=== PATIENT | female | born 1955 | race Caucasian/White ===

== ENCOUNTER 2019-08-01 13:24 | Inpatient (IN) | payer OTHER, BC ==
[~2019-08-01] VITALS: Ht 152.4 cm; Wt 71.2 kg
[2019-08-01 13:56] VITALS: BP 148/87
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
[2019-08-01] MEDS ORDERED: LOPERAMIDE2 MG (15:05)
[2019-08-01] MEDS ORDERED: LOPERAMIDE2 MG PO (15:06)
[2019-08-01] MEDS ORDERED: ALPRAZOLAM 0.50.5 MG PO (15:10)
[2019-08-01] MEDS ORDERED: AZITHROMYCIN500 MG PO (15:17)
[2019-08-01] MEDS ORDERED: NORCO 5-325 TA1 EAC1 PO (15:18)
[2019-08-01] MEDS ORDERED: CEFIXIME400 MG PO (15:18)
[2019-08-01] MEDS ORDERED: ATIVAN0.5 M1 PO (16:21)
[2019-08-01] MEDS ORDERED: DEPAKOTE500 MG PO (16:22)
[2019-08-01] MEDS ORDERED: TRAMADOL 50 MG50 MG PO (16:22)
[2019-08-01] MEDS ORDERED: ACYCLOVIR 400400 MG PO (16:22)
[2019-08-01] MEDS ORDERED: TRAZODONE 150150 M1 PO (16:23)
[2019-08-01] MEDS ORDERED: PRISTIQ50 M1 PO (16:23)
[2019-08-01] MEDS ORDERED: MIRAPEX1 MG PO (16:23)
[2019-08-01 19:24] VITALS: BP 126/73
--- NOTE | 2019-08-02 03:57 | NUR ---
Assumed car eof pt @ 1900. Pt slightly anxious and argumentative at beginning of shift. Pt took medications whole without difficulty. Pt argued with staff when asked to give up her beaded necklace. Pt states, "I'm not suicidal now". Pt denies SI/HI. Pt isolated in room most of shift. Pt was given PRN Tramadol for pain, Ativan for anxiety, and Zofran for nausea. VSWNL. Health assessment with no abnormalities at present time. Currently resting in bed with eyes closed. Will continue to monitor per protocol.
[2019-08-02 08:00] VITALS: BP 127/74
--- NOTE | 2019-08-02 08:00 | NUR ---
PT CAME OUT TO DINING ROOM FOR BREAKFAST, PT HAS RING TO SIT ON FOR PAIN TO PELVIS. PT STATED SHE HAS PAIN OF 8 ON 1-10 SCALE TO HEAD, BACK AND PELVIC AREA. PT UNABLE TO SIT TO EAT. PT DID DRINK SOME OJ.
--- NOTE | 2019-08-02 09:09 | NUR ---
ADM TRAMADOL 50MG PO FOR PAIN OF 8 ON 1-10 SCALE TO HEAD, BACK, AND PELVIC AREA.
--- NOTE | 2019-08-02 10:09 | NUR ---
ADM LORAZEPAM 0.5MG FOR ANXIETY. PT STATED TRAMADOL DIDN'T HELP PAIN.
--- NOTE | 2019-08-02 12:08 | NUR ---
CALLING DR. URIBE AT THIS TIME FOR ORDERS ON HYDROCODONE, PT WOULD LIKE TO HAVE SOMETHING FOR DIARRHEA ALSO.
[2019-08-02 13:16] VITALS: BP 127/74
--- NOTE | 2019-08-02 14:06 | NUR ---
ADM HYDROCODON 5MG PO FOR PAIN TO BACK, HEAD, AND PELVIC OF 8 ON 1-10 SCALE. PT GETTING ANXIOUS AND UPSET ABOUT HAVING TO WAIT FOR PAIN MED.
--- NOTE | 2019-08-02 15:47 | NUR ---
Sw met with pt and completed the intake assessment and TP. This included finding her insurance cards from the safe in security and providing this to administration. Sw spoke with Dr Cordova at the end of the day and she stated that this pt can d/c home tomorrow per pt request. pt has appts with Kaylee simpson [facility] [phone] on 08/07 at 2pm. This is a weekly visit. Dr Bobby on 09/02 . This pt has an AA sponsor and is active in her taoism.
[2019-08-02 16:33] LABS: HEMATOCRIT 43.7 % (37.0-47.0); HEMOGLOBIN 14.3 gm/dL (12.0-15.0); MCHC 32.8 g/dL (28.0-37.0); MCV 100.6 fL (80.0-100.0); RBC 4.34 mil/uL (4.20-5.00); RDW 13.4 % (10.5-14.5); WBC 9.1 thou/uL (4.0-11.0)
[2019-08-02 16:50] LABS: ALBUMIN 3.5 g/dL (3.4-5.0); CALCIUM 9.1 mg/dL (8.5-10.1); CREATININE 0.7 mg/dL (0.6-1.0); POTASSIUM 4.6 mmol/L (3.5-5.1); TOTAL BILIRUBIN 0.3 mg/dL (<0.1-1.0); TOTAL PROTEIN 7.8 g/dL (6.4-8.2)
[2019-08-02 17:35] LABS: URINE BILIRUBIN NEGATIVE (Negative); URINE BLOOD NEGATIVE (Negative); URINE CLARITY CLEAR; URINE COLOR YELLOW; URINE GLUCOSE-RANDOM* NEGATIVE (Negative); URINE KETONES NEGATIVE (Negative); URINE LEUKOCYTES 2+ (Negative); URINE NITRITE NEGATIVE (Negative); URINE PROTEIN (DIPSTICK) NEGATIVE (Negative); URINE SPECIFIC GRAVITY >= 1.030 (1.005-1.035); URINE UROBILINOGEN 0.2 E.U./dl (0.2-1.0)
[2019-08-02 17:45] LABS: CASTS None Seen /LPF (None Seen); CRYSTALS None Seen /LPF (None Seen); SQUAMOUS >10 Many /LPF (0-3); URINE RBC None Seen /HPF (0-2); URINE WBC >25 Many /HPF (0-5)
[2019-08-02 19:30] VITALS: BP 137/82
--- NOTE | 2019-08-02 19:33 | NUR ---
ADM NORCO 5MG PO FOR PAIN TO HEAD, BACK, AND PELVIC OF 8 ON 1-10 SCALE.
--- NOTE | 2019-08-03 03:52 | NUR ---
Assumed care of pt @ 1900. Pt calm et cooperative this shift with pleasant misdemeanor. Took medications whole without difficulty. Ambulates halls ad krystal with steady gait et use of walker. Isolated in room most of early part of shift. VSWNL. Health assessment with no abnormalities noted at present time. Pt was given PRNs during shift of Hydrocodone/Acetaminophen for pain, Zofran for nausea, et Ativan for anxiety. Currently resting in bed with eyes closed. Will continue to monitor per protocol.
[2019-08-03 08:10] VITALS: BP 92/60
--- NOTE | 2019-08-03 08:17 | NUR ---
PT OUT IN DINING ROOM THIS AM. PT HAS DONUT PILLOW FOR BOTTOM. PT STATED SHE DID WANT SOME PAIN MEDICATION. PT STATED PAIN IS +10 TO BACK. PT TOOK MEDS WHOLE FOR THIS [employer].
--- NOTE | 2019-08-03 08:26 | NUR ---
ADM NORCO 5MG PO FOR PAIN TO BACK AND HEAD OF 10 ON 1-10 SCALE.
[2019-08-03 08:42] VITALS: BP 127/74
[2019-08-03 10:50] VITALS: BP 127/74
--- NOTE | 2019-08-03 10:51 | NUR ---
Sw spoke with pt's friend Clari [phone] and she stated that she would be staying with the pt for this next week and will be at the home when pt gets ther this afternoon. Pt's car is at [facility]. Sw will provide a taxi voucher for the transfer to her car. MARLEN reported this to nursing, Dr Cordova and pt.
--- NOTE | 2019-08-03 11:09 | NUR ---
Sw met with pt and reported d/c plans, pt is satisfied with this.
[2019-08-03] MEDS ORDERED: ADVAIR 250-501 EACH INH (12:27)
[2019-08-03] MEDS ORDERED: FAMCICLOVIR250 MG PO (12:28)
[2019-08-03] MEDS ORDERED: MELOXICAM15 MG PO (12:28)
[2019-08-03] MEDS ORDERED: PRAZOSIN HCL1 MG PO (12:28)
[2019-08-03] MEDS ORDERED: VENTOLIN HFA INH8 GM INH (12:29)
[2019-08-03] MEDS ORDERED: VENTOLIN HFA 1818 GM INH (12:30)
[2019-08-03] MEDS ORDERED: FLORANEX GRANU1 EACH PO (12:34)
[2019-08-03] MEDS ORDERED: CYMBALTA20 MG PO (12:34)
[2019-08-03] MEDS ORDERED: OTHER (12:34)
--- NOTE | 2019-08-03 12:54 | NUR ---
ADM HYDROCODONE 5MG PO AND ATIVAN PO FOR ANXIETY AND PAIN OF 6 ON 1-10 SCALE. PT STATED PAIN IS BETTER, PT SEEMS TO BE IN GOOD SPIRITS. PT GOING TO BE DISCHARGED TODAY.
--- NOTE | 2019-08-03 13:40 | NUR ---
REVIEWED DISCHARGE INFORMATION WITH PATIENT. PT BELONGINGS GIVEN TO PATIENT. PT DIDN'T RECIEVE NARCOTIC DUE MED NOT BEING AT PHARMACY. PT UPSET AND STATED SHE DIDN'T HAVE PAIN MED OR ATIVAN AT HOME, THIS MANAGER PROPERTY STATED TO FOLLOW UP WITH PRIMARY DR. PT STATED OF FORGET ABOUT IT. PT LEFT VIA CAB TO CAR.
== END 2019-08-03 13:40 | disposition home or self-care (01) | DRG 882 ==
LOC: SBH 13:24
PROVIDERS: Internal Medicine; ADMIT Psychiatry & Neurology Psychiatry
DX: F43.10 Post-traumatic stress disorder, unspecified (principal); F60.3 Borderline personality disorder; R19.7 Diarrhea, unspecified; R10.9 Unspecified abdominal pain; F17.200 Nicotine dependence, unspecified, uncomplicated; Z88.1 Allergy status to other antibiotic agents; Z88.2 Allergy status to sulfonamides; Z79.899 Other long term (current) drug therapy; Z79.2 Long term (current) use of antibiotics; Z88.8 Allergy status to other drugs, medicaments and biological substances; Z88.6 Allergy status to analgesic agent; Z88.5 Allergy status to narcotic agent; Z91.410 Personal history of adult physical and sexual abuse; Z28.21 Immunization not carried out because of patient refusal; Z86.73 Personal history of transient ischemic attack (TIA), and cerebral infarction without residual deficits; Z91.5 Personal history of self-harm
CPT/HCPCS: 10880

== ENCOUNTER 2020-07-19 03:18 | Emergency (ER) | payer OTHER, BC ==
[~2020-07-19] VITALS: Ht 149.9 cm; Wt 65.8 kg
[~2020-07-19 03:18] MED LIST: ACYCLOVIR 400400 MG PO; ADVAIR 250-501 EACH INH; ALPRAZOLAM 0.50.5 MG PO; ATIVAN0.5 M1 PO; AZITHROMYCIN500 MG PO; CEFIXIME400 MG PO; CYMBALTA20 MG PO; DEPAKOTE500 MG PO; FAMCICLOVIR250 MG PO; FLORANEX GRANU1 EACH PO; LOPERAMIDE2 MG; LOPERAMIDE2 MG PO; MELOXICAM15 MG PO; MIRAPEX1 MG PO; NORCO 5-325 TA1 EAC1 PO; OTHER; PRAZOSIN HCL1 MG PO; PRISTIQ50 M1 PO; TRAMADOL 50 MG50 MG PO; TRAZODONE 150150 M1 PO; VENTOLIN HFA 1818 GM INH; VENTOLIN HFA INH8 GM INH
[2020-07-19] MEDS ORDERED: CYCLOBENZAPRINE10 MG PO (03:51)
[2020-07-19] MEDS ORDERED: ENBREL50 MG/1 M2 SUBQ (03:52)
[2020-07-19] MEDS ORDERED: ONDANSETRON HCL8 MG PO (03:53)
[2020-07-19] MEDS ORDERED: CLONIDINE HCL0.1 MG PO (03:53)
[2020-07-19] MEDS ORDERED: SUMATRIPTAN SUC50 MG PO (03:54)
[2020-07-19] MEDS ORDERED: DESVENLAFAXINE100 M3 PO (03:54)
[2020-07-19] MEDS ORDERED: FLUTICASONE PRO16 GM INH (03:55)
[2020-07-19] MEDS ORDERED: AUGMENTIN 875-1 EACH PO (04:49)
[2020-07-19 04:51] VITALS: BP 141/87
--- NOTE | 2020-07-21 07:38 | EKG ---
[address] [address] ELECTROCARDIOGRAM REPORT Name: DONTA NELSON [id number] Admission: 07/19/20 Attend Phys: Discharge: 07/19/20 Date of : 51 Report #: [id number] [facility] ED Test Date: 2020-07-19 Test Time: 03:28:30 Pat Name: DONTA NELSON Department: Room: Gender: F Manager Hvac: ANATOLIY : 1955 Requested By: Koko Levi Order Number: [id number] MD: Abebe Sauer Measurements Intervals [place] Rate: 101 P: 57 MD: 130 QRS: 61 QRSD: 82 T: 46 QT: 331 QTc: 429 Interpretive Statements Sinus tachycardia Otherwise normal tracing No previous ECG available for comparison Electronically Signed On 07-21-2020 7:38:45 HOSPITAL COORDINATOR by Abebe Sauer [email or web address] <ELECTRONICALLY SIGNED> By: Abebe Sauer MD, [facility] 07/21/20 [id number] Abebe Sauer MD, FACC /EPI
== END 2020-07-19 04:52 | disposition home or self-care (01) ==
LOC: ER 03:18
DX: J32.9 Chronic sinusitis, unspecified (principal); Z79.899 Other long term (current) drug therapy; Z88.2 Allergy status to sulfonamides; Z88.5 Allergy status to narcotic agent; Z88.8 Allergy status to other drugs, medicaments and biological substances; Z20.828 Contact with and (suspected) exposure to other viral communicable diseases

== ENCOUNTER 2020-11-20 00:23 | Emergency (ER) | payer OTHER, BC ==
[~2020-11-20] VITALS: Ht 149.9 cm; Wt 68.0 kg
[~2020-11-20 00:23] MED LIST changes: +AUGMENTIN 875-1 EACH PO; +CLONIDINE HCL0.1 MG PO; +CYCLOBENZAPRINE10 MG PO; +DESVENLAFAXINE100 M3 PO; +ENBREL50 MG/1 M2 SUBQ; +FLUTICASONE PRO16 GM INH; +ONDANSETRON HCL8 MG PO; +SUMATRIPTAN SUC50 MG PO
[2020-11-20] MEDS ORDERED: WELLBUTRIN 100100 MG PO (00:32)
[2020-11-20] MEDS ORDERED: VICODIN PO (00:32)
[2020-11-20] MEDS ORDERED: HYDROCODON-ACE1 EAC7 PO (01:03)
[2020-11-20 01:55] VITALS: BP 134/76
== END 2020-11-20 01:50 | disposition home or self-care (01) ==
LOC: ER 00:23
DX: M06.832 Other specified rheumatoid arthritis, left wrist (principal); F17.200 Nicotine dependence, unspecified, uncomplicated; Z88.2 Allergy status to sulfonamides; Z88.5 Allergy status to narcotic agent; Z88.8 Allergy status to other drugs, medicaments and biological substances

== ENCOUNTER 2021-03-29 22:04 | Emergency (ER) | payer OTHER, BC ==
[~2021-03-29] VITALS: Ht 152.4 cm; Wt 77.1 kg
[~2021-03-29 22:04] MED LIST changes: +HYDROCODON-ACE1 EAC7 PO; +VICODIN PO; +WELLBUTRIN 100100 MG PO
[2021-03-29 22:06] VITALS: BP 138/89
[2021-03-29] MEDS ORDERED: ZOCOR 10 MG TAB10 M1 PO (22:31)
[2021-03-29] MEDS ORDERED: HYDROXYZINE HCL25 M2 PO (22:32)
[2021-03-29] MEDS ORDERED: SENNA8.6 MG PO (22:33)
[2021-03-29] MEDS ORDERED: LATANOPROST 0.2.5 ML OPHTHALMIC (22:33)
[2021-03-29] MEDS ORDERED: METHOTREXATE 22.5 M1 PO (22:33)
[2021-03-29] MEDS ORDERED: CYPROHEPTADINE 44 MG PO (22:36)
== END 2021-03-30 00:20 | disposition home or self-care (01) ==
LOC: ER 22:04
DX: M79.652 Pain in left thigh (principal); Z88.5 Allergy status to narcotic agent; Z88.2 Allergy status to sulfonamides; Z88.6 Allergy status to analgesic agent